=== PATIENT | female | born 2000 | race Caucasian/White ===

== ENCOUNTER → 2020-01-31 | Outpatient (REF) | payer BC ==
[2020-03-05 13:23] LABS: BASO % 0.3 % (0.0-1.0); EOS % 0.5 % (0.0-3.0); HEMOGLOBIN 12.6 g/dl (12.0-15.5); LYMPH # 1.3 10^3/uL (1.5-5.0); LYMPH % 15.8 % (24.0-44.0); MEAN CORPUSCULAR HEMOGLOBIN 27.6 pg (27.0-33.0); MEAN CORPUSCULAR HGB CONC 33.2 g/dl (32.0-36.5); MEAN CORPUSCULAR VOLUME 83.3 fl (80.0-96.0); MONO # 0.5 10^3/uL (0.0-0.8); MONO % 5.7 % (0.0-5.0); NEUTROPHILS # 6.1 10^3/uL (1.5-8.5); NEUTROPHILS % 77.3 % (36.0-66.0); PLATELET COUNT, AUTOMATED 217 10^3/uL (150-450); RED BLOOD COUNT 4.56 10^6/uL (4.00-5.40); WHITE BLOOD COUNT 7.9 10^3/uL (4.0-10.0)
[2020-03-09 10:50] LABS: CHLAMYDIA DNA AMPLIFICATION NEGATIVE (NEGATIVE); GC DNA AMPLIFICATION NEGATIVE (NEGATIVE)
[2020-03-19 09:17] LABS: HEPATITIS C VIRUS ABY INDEX 0.2 INDEX (<0.8); HIV 1&2 SCREEN CENTAUR NEGATIVE (NEGATIVE)
== END ==
LOC: M SFHCWAGY 12:15
PROVIDERS: ATTEND Advanced Practice Midwife
DX: Z34.02 Encounter for supervision of normal first pregnancy, second trimester (principal)

== ENCOUNTER → 2020-02-14 | Outpatient (CLI) | payer BC ==
--- NOTE | 2020-02-21 17:21 | REP ---
COMPLETE OBSTETRIC ULTRASOUND CLINICAL: Anatomical assessment. TECHNIQUE: Transabdominal obstetric ultrasound with color Doppler evaluation. FINDINGS: Ultrasound evaluation demonstrates a single live intrauterine in breech presentation. heart rate equals 142 beats per minute. Cervix measures 3.5 cm in length and appears closed. Amniotic fluid volume is normal. Placenta identified posteriorly, grade 1, and without placenta previa or abruption. Gestational age by current biometrical measurements 19 weeks 1 day with estimated date of delivery 07/09/2020. Estimated weight 272 grams. Anatomic assessment demonstrates normal cisterna magna, cavum, thalamus, spine, stomach, kidneys/bladder, heart/ventricular outflow tract, three-vessel cord/cord insertion, facial features, and extremities. IMPRESSION: Single live intrauterine in breech presentation demonstrating appropriate estimated weight and growth. Anatomic assessment is complete and normal. MTDD
== END ==
LOC: M WHC 08:05
PROVIDERS: ATTEND Advanced Practice Midwife
DX: Z34.02 Encounter for supervision of normal first pregnancy, second trimester (principal)

== ENCOUNTER → 2020-04-25 | Outpatient (REF) | payer BC | LOC: M PLALAB 15:24 | PROVIDERS: ATTEND Obstetrics & Gynecology | DX: Z3A.29 29 weeks gestation of pregnancy (principal) ==

== ENCOUNTER → 2020-05-13 | Outpatient (REF) | payer BC ==
[2020-05-13 16:59] LABS: HEMATOCRIT 34.1 % (36.0-47.0); HEMOGLOBIN 10.9 g/dl (12.0-15.5); MEAN CORPUSCULAR HEMOGLOBIN 26.4 pg (27.0-33.0); MEAN CORPUSCULAR VOLUME 82.6 fl (80.0-96.0); PLATELET COUNT, AUTOMATED 196 10^3/uL (150-450); RED BLOOD COUNT 4.13 10^6/uL (4.00-5.40); WHITE BLOOD COUNT 9.4 10^3/uL (4.0-10.0)
== END ==
LOC: M PLALAB 14:32
PROVIDERS: ATTEND Obstetrics & Gynecology
DX: Z3A.29 29 weeks gestation of pregnancy (principal); Z34.82 Encounter for supervision of other normal pregnancy, second trimester

== ENCOUNTER → 2020-06-10 | Outpatient (REF) | payer BC | LOC: M SFHCWAGY 16:57 | PROVIDERS: ATTEND Obstetrics & Gynecology | DX: Z34.03 Encounter for supervision of normal first pregnancy, third trimester (principal); Z3A.35 35 weeks gestation of pregnancy ==

== ENCOUNTER 2020-07-16 15:06 | Inpatient (IN) | payer BC, MEDICAID ==
[2020-07-16] VITALS (9 sets, daily range): BP systolic 108–127; BP diastolic 56–72
[~2020-07-16] VITALS: Ht 175.3 cm; Wt 99.1 kg
--- OUTSIDE RECORDS SUMMARY | 2020-07-16 15:18 | CCD ---
Author Author [facility] Organization [facility] Address Unknown Phone Unavailable Care Team Providers Care Continuity Tester Name Role Phone Alcides Lulu Unavailable PROBLEMS Type Condition ICD9-CM Code [id number] Code Onset Dates Condition S tatus SNOMED Code Notes Problem Supervision of other normal Z34.80 Ac tive [id number] ALLERGIES No Known Allergies ENCOUNTERS from 1999 to 2020-06-18 Encounter Location Date Provider Diagnosis [facility] [address] [place] [address] May, Lulu Mcgrath Encounter for superv ision of normal first in third trimester Z34.03 and 36 weeks gestation of Z3A.36 IMMUNIZATIONS No Information SOCIAL HISTORY Tobacco Use: Social History Observation Description Date Details (start date - stop date) Never Smoker Sex Assigned At : Social History Observation Description Sex Assigned At Unknown Domestic Violence: Question Answer Notes Status: No history of abuse Alcohol Screening: Question Answer Notes Did you have a drink containing alcohol in the past year? No Points 0 Interpretation Negative Tobacco Use: Question Answer Notes Are you a: never smoker REASON FOR REFERRAL No Information VITAL SIGNS Weight 210.6 lbs May, Weight-kg 95.53 kg May, Height 59 in May, BMI 42.536 kg/m2 May, Blood pressure systolic 112 mm Hg May, Blood pressure diastolic 70 mm Hg May, MEDICATIONS Medication SIG (Take, Route, Frequency, Duration) Notes Start Da te End Date Status 27-1 MG 1 tablet Orally Once a day Active PROCEDURES No Information RESULTS No Results REASON FOR VISIT 1WK PN Goals Section No Information Health Concerns No Information MEDICAL EQUIPMENT No Information MENTAL STATUS No Information FUNCTIONAL STATUS No Information ASSESSMENTS Encounter Date Diagnosis Assessment Notes Treatment Notes Treatm ent Clinical Notes May, Encounter for supervision of normal first in third trimester (ICD-10 - Z34.03) May, 36 weeks gestation of (ICD-10 - Z3A.36 ) PLAN OF TREATMENT Next Appt Details 1 Week Reason: Provider Name:Trace Mejia, 11:30:00 AM, [address] [place], [address], Insurance Providers Payer Name Payer Address Payer Phone Insured Name Patient Relati onship to Insured Coverage Start Date Coverage End Date BCBS OF [facility] [phone] [facility] [id number] [place]
--- OUTSIDE RECORDS SUMMARY | 2020-07-16 15:18 | CCD ---
Author Author [facility] Organization [facility] Address Unknown Phone Unavailable Care Team Providers Care Customer Operations Manager Name Role Phone Jackie Trace Unavailable PROBLEMS Type Condition ICD9-CM Code [id number] Code Onset Dates Condition S tatus SNOMED Code Notes Problem Supervision of other normal Z34.80 Ac tive [id number] ALLERGIES No Known Allergies ENCOUNTERS from 1999 to 2020-06-11 Encounter Location Date Provider Diagnosis [facility] [address] [place] [id number] May, Trace Mejia Encounter for superv ision of normal first , third trimester Z34.03 and 35 weeks gestation of Z3A.35 IMMUNIZATIONS No Information SOCIAL HISTORY Tobacco Use: [...] FOR REFERRAL No Information VITAL SIGNS Weight 205.8 lbs May, Height 59 in May, BMI 41.567 kg/m2 May, Blood pressure systolic 98 mm Hg May, Blood pressure diastolic 60 mm Hg May, MEDICATIONS Medication SIG (Take, Route, Frequency, Duration) Notes Start Da te End Date Status 27-1 MG 1 tablet Orally Once a day Active PROCEDURES No Information RESULTS No Results REASON FOR VISIT 4WK PN Goals Section No Information Health Concerns No Information MEDICAL EQUIPMENT No Information MENTAL STATUS No Information FUNCTIONAL STATUS No Information ASSESSMENTS Encounter Date Diagnosis Assessment Notes Treatment Notes Treatm ent Clinical Notes May, Encounter for supervision of normal first , third trimester (ICD-10 - Z34.03) May, 35 weeks gestation of (ICD-10 - Z3A.35 ) PLAN OF TREATMENT Treatment Notes Test Name Order Date GROUP B STREP CULTURE 2020-06-11 Next Appt Details 1 Week Reason:follow-up Provider Name:Lulu Mcgrath, 2020-06-17 0 1:40:00 PM, [address] [place], [address], Follow Up:1 Weekfollow-up Insurance Providers Payer Name Payer Address Payer Phone Insured Name Patient Relati onship to Insured Coverage Start Date Coverage End Date BCBS OF [facility] [phone] [facility] [id number] [place] self
--- OUTSIDE RECORDS SUMMARY | 2020-07-16 15:18 | CCD ---
Author Author [facility] Organization [facility] Address Unknown Phone Unavailable Care Team Providers Care Debt Counselor Name Role Phone Alcides Lulu Unavailable PROBLEMS Type Condition ICD9-CM Code AHC60-BD Code Onset Dates Condition S tatus SNOMED Code Notes Problem Supervision of other normal Z34.80 Ac tive [id number] ALLERGIES No Known Allergies ENCOUNTERS from 1999 to 2020-05-28 Encounter Location Date Provider Diagnosis [facility] [address] [place] [address] May, Lulu Mcgrath Encounter for superv ision of normal first , third trimester Z34.03 and 33 weeks gestation of Z3A.33 IMMUNIZATIONS No Information SOCIAL HISTORY Tobacco Use: Social History Observation Description Date Details (start date - stop date) Never Smoker Sex Assigned At : Social History Observation Description Sex Assigned At Unknown Domestic Violence: Question Answer Notes Status: No history of abuse Sexual Hx: Question Answer Notes Had sex in the last 12 months (vaginal, oral, or anal)? Yes with Men only Use protection? No Alcohol Screening: Question Answer Notes Did you have a drink containing alcohol in the past year? No Points 0 Interpretation Negative Tobacco Use: Question Answer Notes Are you a: never smoker REASON FOR REFERRAL No Information VITAL SIGNS Weight 202 lbs May, Height 59 in May, BMI 40.799 kg/m2 May, Blood pressure systolic 104 mm Hg May, Blood pressure diastolic 56 mm Hg May, MEDICATIONS Medication SIG (Take, Route, Frequency, Duration) Notes Start Da te End Date Status 27-1 MG 1 tablet Orally Once a day Active PROCEDURES from 1999 to 2020-05-28 Procedure Date Ordered Result Body Site Immunization: Boostrix 0.5mL IM (TDAP) 2020-05-23 N/A RESULTS No Results REASON FOR VISIT 4WK PN Goals Section No Information Health Concerns No Information MEDICAL EQUIPMENT No Information MENTAL STATUS No Information FUNCTIONAL STATUS No Information ASSESSMENTS Encounter Date Diagnosis Assessment Notes Treatment Notes Treatm ent Clinical Notes May, Encounter for supervision of normal first , third trimester (ICD-10 - Z34.03) May, 33 weeks gestation of (ICD-10 - Z3A.33 ) PLAN OF TREATMENT Next Appt Details 2 Weeks Reason: Provider Name:Trace Mejia, 02:00:00 PM, [address] [place], [address], Insurance Providers Payer Name Payer Address Payer Phone Insured Name Patient Relati onship to Insured Coverage Start Date Coverage End Date BCBS OF [facility] [phone] [facility] [id number] [address] self
--- OUTSIDE RECORDS SUMMARY | 2020-07-16 15:18 | CCD ---
Author Author [facility] Organization [facility] Address Unknown Phone Unavailable Care Team Providers Care Printed Circuit Boards Laminator Name Role Phone Bonnie Kumar MD Unavailable Unavailable Bonnie Kumar MD Unavailable Unavailable Bonnie Kumar MD Unavailable Unavailable Bonnie Kumar MD Unavailable Unavailable Bonnie Kumar MD Unavailable Unavailable Bonnie Kumar MD Unavailable Unavailable Bonnie Kumar MD Unavailable Unavailable Bonnie Kumar MD Unavailable Unavailable Bonnie Kumar MD Unavailable Unavailable Bonnie Kumar MD Unavailable Unavailable Bonnie Kumar MD Unavailable Unavailable Bonnie Kumar MD Unavailable Unavailable Bonnie Kumar MD Unavailable Unavailable Bonnie Kumar MD Unavailable Unavailable Bonnie Kumar MD Unavailable Unavailable Bonnie Kumar MD Unavailable Unavailable Bonnie Kumar MD Unavailable Unavailable Bonnie Kumar MD Unavailable Unavailable Bonnie Kumar MD Unavailable Unavailable Bonnie Kumar MD Unavailable Unavailable Bonnie Kumar MD Unavailable Unavailable Bonnie Kumar MD Unavailable Unavailable Bonnie Kumar MD Unavailable Unavailable Bonnie Kumar MD Unavailable Unavailable Bonnie Kumar MD Unavailable Unavailable Bonnie Kumar MD Unavailable Unavailable Bonnie Kumar MD Unavailable Unavailable Bonnie Kumar MD Unavailable Unavailable Bonnie Kumar MD Unavailable Unavailable Bonnie Kumar MD Unavailable Unavailable Bonnie Kumar MD Unavailable Unavailable Bonnie Kumar MD Unavailable Unavailable Bonnie Kumar MD Unavailable Unavailable Bonnie Kumar MD Unavailable Unavailable Bonnie Kumar MD Unavailable Unavailable Bonnie Kumar MD Unavailable Unavailable Bonnie Kumar MD Unavailable Unavailable Bonnie Kumar MD Unavailable Unavailable Bonnie Kumar MD Unavailable Unavailable Bonnie Kumar MD Unavailable Unavailable Bonnie Kumar MD Unavailable Unavailable Bonnie Kumar MD Unavailable Unavailable Bonnie Kumar MD Unavailable Unavailable Bonnie Kumar MD Unavailable Unavailable Bonnie Kumar MD Unavailable Unavailable Bonnie Kumar MD Unavailable Unavailable Bonnie Kumar MD Unavailable Unavailable Bonnie Kumar MD Unavailable Unavailable Bonnie Kumar MD Unavailable Unavailable Bonnie Kumar MD Unavailable Unavailable Bonnie Kumar MD Unavailable Unavailable Bonnie Kumar MD Unavailable Unavailable Bonnie Kumar MD Unavailable Unavailable Bonnie Kumar MD Unavailable Unavailable Bonnie Kumar MD Unavailable Unavailable Bonnie Kumar MD Unavailable Unavailable Bonnie Kumar MD Unavailable Unavailable Bonnie Kumar MD Unavailable Unavailable Bonnie Kumar MD Unavailable Unavailable Bonnie Kumar MD Unavailable Unavailable Bonnie Kumar MD Unavailable Unavailable Kwicklis, J Toña MD Unavailable Unavailable Kwicklis, J Toña MD Unavailable Unavailable Kwicklis, J Toña MD Unavailable Unavailable Kwicklis, J Toña MD Unavailable Unavailable Kwicklis, J Toña MD Unavailable Unavailable Kwicklis, J Toña MD Unavailable Unavailable Kwicklis, J Toña MD Unavailable Unavailable Kwicklis, J Toña MD Unavailable Unavailable Kwicklis, J Toña MD Unavailable Unavailable Kwicklis, J Toña MD Unavailable Unavailable Kwicklis, J Toña MD Unavailable Unavailable Kwicklis, J Toña MD Unavailable Unavailable Kwicklis, J Toña MD Unavailable Unavailable Kwicklis, J Toña MD Unavailable Unavailable Kwicklis, J Toña MD Unavailable Unavailable Kwicklis, J Toña MD Unavailable Unavailable Kwicklis, J Toña MD Unavailable Unavailable Kwicklis, J Toña MD Unavailable Unavailable Kwicklis, J Toña MD Unavailable Unavailable Kwicklis, J Toña MD Unavailable Unavailable Kwicklis, J Toña MD Unavailable Unavailable Kwicklis, J Toña MD Unavailable Unavailable Re-disclosure Warning The records that you are about to access may contain information from federally-assisted alcohol or drug abuse programs. If such information is present, then the following federally mandated warning applies: This information has been disclosed to you from records protected by federal confidentiality rules (42 CFR part 2). The federal rules prohibit you from making any further disclosure of this information unless further disclosure is expressly permitted by the written consent of the person to whom it pertains or as otherwise permitted by 42 CFR part 2. A general authorization for the release of medical or other information is NOT sufficient for this purpose. The Federal rules restrict any use of the information to criminally investigate or prosecute any alcohol or drug abuse patient.The records that you are about to access may contain highly sensitive health information, the redisclosure of which is protected by Article 27-F of the [place] Public Health law. If you continue you may have access to information: Regarding HIV / AIDS; Provided by facilities licensed or operated by the [facility] Office of Mental Health; or Provided by the [facility] Office for People With Developmental Disabilities. If such information is present, then the following [facility] mandated warning applies: This information has been disclosed to you from confidential records which are protected by state law. State law prohibits you from making any further disclosure of this information without the specific written consent of the person to whom it pertains, or as otherwise permitted by law. Any unauthorized further disclosure in violation of state law may result in a fine or care home sentence or both. A general authorization for the release of medical or other information is NOT sufficient authorization for further disc losure. Family History Family Member Name Family Member Gender Family Member Status Date o f Status Description Data Source(s) Unknown Unknown Problem MEDENT ([facility]) Encounters Encounter Providers Location Date Indications Data Source(s ) ( ESTOB) [facility] [place] [address] [place] [phone] 07/04/2020 12:00:00 AM EST eCW1 ([facility]) ( ESTOB) [facility] [place] [address] [place] [phone] 06/26/2020 12:00:00 AM EST eCW1 ([facility]) ( ESTOB) [facility] [place] [address] [place], [place] [phone] 06/17/2020 12:00:00 AM EST eCW1 ([facility]) ( ESTOB) [facility] [place] [address] [place] [address] 06/09/2020 12:00:00 AM EST eCW1 ([facility]) ( ESTOB) [facility] [place] [address] [place] [phone] 05/23/2020 12:00:00 AM EST eCW1 ([facility]) ( ESTOB) [facility] [place] [address] [place] [phone] 04/25/2020 12:00:00 AM EST eCW1 ([facility]) ( ESTOB) [facility] [place] [address] [place] [phone] 03/26/2020 12:00:00 AM EDT eCW1 ([facility]) Outpatient Attender: Toña Kumar MDReferrer: Toña turcios MD 12/12/2019 01:47:00 PM EDT - 12/12/2019 02:20:00 PM EDT [facility] Insurance Providers Payer name Policy type / Coverage type Policy ID Covered democrat ID Covered democrat's relationship to vázquez Policy Vázquez Plan Information [employer] [place] 306/806 [id number] SP [id number] [place] P[place] 302/[id number] [place]LL[place] BCBS B [id number] S [id number] [place] PPO 302/307 [id number] BCBS/[place] Commercial [id number] Family Dependent [id number] BCBS of [facility] Other [id number] F amily Dependent Rogelio Babbpert [id number] BCBS of [facility] Other [id number] F amily Dependent Rogelio Babbpert [id number] BCBS of [facility] Other [id number] F amily Dependent Rogelio Tinajerouppert [id number] BCBS of [facility] Other [id number] F amily Dependent Rogelio Tinajerouppert [id number] [employer] BL[employer] BS [id number] BLUE CROSS BLUE SHIELD -CLINIC [id number] Problems, Conditions, and Diagnoses Code Display Name Description Problem Type Effective Dates Data Source(s) Z34.80 care Supervision of other normal Armaan bradford 03/25/2020 12:00:00 AM EDT eCW1 ([facility]) Surgeries/Procedures Procedure Description Date Indications Data Source(s) Immunization: Boostrix 0.5mL IM (TDAP) 05/23/2020 12:0 0:00 AM EST eCW1 ([facility]) Results ID Date Data Source [id number] 12/12/2019 01:49:00 PM EDT [facility] Patient Name: VITO SAUER : 2000 Sex: F Pt Unit #: [id number] Location:[facility] Provider: Visit Date/Time: 12/12/19 Primary Insurance: BC/BS OF [facility] Secondary Insurance: Self Pay ADDENDUM Office Procedure Documentation entered by Carolynn Richards 12/12/19 15:19: Results test test POSITIVE Last Edit by Carolynn Richards on 12/12/19 15:19 <Electronically signed by Carolynn Richards > Addendum Signed By: Date/Time: 12/12/19 1519 Intake Vital Signs 12/12/19 13:54 Current Height 5 ft 9 in Current Weight 140 lb Weight Measurement Method Standing Scale BMI 20.7 BP 130/70 Blood Pressure Location Rt brachial Position Sitting Respiration 12 Pulse 113 H Pulse Strength Normal Pulse Source Pulse Oximeter Pulse Oximetry (%) 99 Oxygen Delivery Method room air Intake Visit Reasons: Annual Physical Nurse Note: Annual Physical - Not currently taking any prescribed medications, only pre-lisa Vit, also missed her menstrual Cycle last month, Has never had a Pap, no additional concerns today Insurance Rater Required: No Accompanied by: Self / Same as Patient Is patient in pain?: No Allergies No Known Drug Allergies Allergy (Verified 12/12/19 14:18) Medications No Known Home Medications Is last menstrual period known: Yes Last menstrual period: 08/31/19 Post menopausal: No Fall Risk History of falls: No Ambulatory Aid:: None Gait/Transferring:: Normal Medications:: No High Risk Medications PHQ-2/9 Over the last 2 weeks, how often have you been bothered by any of the following problems? 1. Little interest or pleasure in doing things: not at all 2. Feeling down, depressed, or hopeless: not at all Total score: 0 HIV Testing Offer - ages 13-64 HIV testing Offer: Yes SBIRT Annual Questionnaire Are you currently in recovery for alcohol or substance use?: No How many times in the past year have you had 4 or more drinks in a day ?: None How many times in the past year have you used a recreational drug or used a prescription medication for nonmedical reasons?: None Do you need a note to return Do you need a note to return to daycare/school/sports/work: No Coronavirus Screening Screening Have you traveled outside of [facility] or [facility] in the last 14 days.: No Has patient experienced coronavirus symptoms: No [facility] Social History Does the Patient have a Healthcare Proxy: No Does Patient have a DNR?: No Does Patient have a Living Will?: No Female Reproductive History Menstrual Date of last menstrual period: 08/31/19 Review of Systems Const Denies chills, Denies fatigue, Denies fever(s), Denies malaise, Reports poor appetite, Denies weightgain and Denies weight loss Eyes Denies blurry vision, Denies diplopia and Denies eye discharge ENT Denies otalgia, Denies nasal congestion, Denies neck pain and Denies sore throat Card Denies chest pain, Denies leg edema and Denies dyspnea Resp Denies cough, Denies dyspnea and Denies wheezing GI Denies constipation, Denies diarrhea and Reports nausea Genitourinary: Reports amenorrhea; Denies abnormal vaginal bleeding, dysuria or pelvic pain Musc Denies back pain, Denies arthralgias, Denies limited range of motion and Denies neck pain Skin/Breast Denies breast pain, Denies breast mass, Denies lesions and Denies rash Psych Denies abnormal sleep pattern, Denies anxiety, Denies depression and Denies irritability Endo Denies fatigue, Denies polydipsia and Denies polyuria William/Lymph Denies easy bleeding, Denies easy bruising and Denies lymphadenopathy Aller/Immun Denies wheezing Exam Const General: cooperative, healthy appearing and no acute distress Nutritional Appearance: average body habitus and well nourished [facility] Head: normal to inspection, normocephalic and atraumatic Ears: TM's normal bilaterally and EAC's normal General nose exam: external nose normal; no nasal discharge noted Mouth: oral mucosae normal Throat: posterior oropharynx normal and no postnasal drainage Eyes General: appearance normal, both eyes and all related structures Conjunctivae: conjunctivae normal Sclera: sclerae normal Pupils: PERRL Neck Neck: normal visual inspection and full ROM Neck mass: No Thyroid: thyroid normal Lymphatic: no lymphadenopathy noted Chest Chest: normal inspection of the chest Resp Effort Inspection: normal respiratory effort Auscultation: no rales, no rhonchi and no wheezes Cardio Rate: regular rate Rhythm: regular rhythm Heart Sounds: no murmurs GI Inspection: Yes normal to inspection Palpation: soft, no masses and nontender Auscultation: normal bowel sounds Musc Cervical Spine: cervical ROM normal Thoracic/Lumbar Spine: thoracic and lumbar spine normal to inspection Neuro General: patient alert and patient awake Cranial Nerves: hearing normal Cognition: normal cognition Motor: muscle tone normal throughout Sensory Exam: no sensory deficits noted Extrem General: no clubbing, cyanosis or edema Psych Appearance: grossly normal Mental Status: mental status grossly normal Assessment Plan Assessment Plan (1) Encounter for routine adult medical exam with abnormal findings: Code(s): Z00.01 - Encounter for general adult medical examination with a bnormal findings (2) : Code(s): Z34.90 - Encounter for supervision of normal , unspecified, unspecified trimester Qualifiers: Weeks of gestation: 12 weeks Qualified Code(s): Z3A.12 - 12 weeks gestation of Plan - Toña Kumar M.D.: doing well, some nausea, but normal exam, referral done for Electronically Signed By: <Electronically signed by Toña Kumar MD> Date/Time Signed: 12/12/19 1423 Name Value Range Interpretation Code Description Data Haily rce(s) Supporting Document(s) Procedure Social History Code Duration Value Status Description Data Source(s ) Smoking 07/03/2020 12:00:00 AM EST Never Smoker completed Never S moker eCW1 ([facility]) Smoking 06/26/2020 12:00:00 AM EST Never Smoker completed Never S moker eCW1 ([facility]) Smoking 06/16/2020 12:00:00 AM EST Never Smoker completed Never S moker eCW1 ([facility]) Smoking 06/06/2020 12:00:00 AM EST Never Smoker completed Never S moker eCW1 ([facility]) Smoking 05/21/2020 12:00:00 AM EST Never Smoker completed Never S moker eCW1 ([facility]) Smoking 04/22/2020 12:00:00 AM EST Never Smoker completed Never S moker eCW1 ([facility]) Smoking 04/22/2020 12:00:00 AM EST Never Smoker completed Never S moker eCW1 ([facility]) Vital Signs ID Date Data Source UNK Name Value Range Interpretation Code Description Data Source(s) Diastolic blood pressure 68 mm[Hg] 68 mm[Hg] eCW1 ([facility]) Systolic blood pressure 116 mm[Hg] 116 mm[Hg] e CW1 ([facility]) Body mass index (BMI) [Ratio] 42.698 kg/m2 42.6 98 kg/m2 eCW1 ([facility]) Body height 59 [in_i] 59 [in_i] eCW1 ([facility]) Body weight 95.89 kg 95.89 kg eCW1 ([facility]) Body weight 211.4 [lb_av] 211.4 [lb_av] eCW1 ([facility]) Diastolic blood pressure 64 mm[Hg] 64 mm[Hg] eCW1 ([facility]) Systolic blood pressure 118 mm[Hg] 118 mm[Hg] e CW1 ([facility]) Body mass index (BMI) [Ratio] 42.213 kg/m2 42.2 13 kg/m2 eCW1 ([facility]) Body height 59 [in_i] 59 [in_i] eCW1 ([facility]) Body weight 209 [lb_av] 209 [lb_av] eCW1 ([facility]) Diastolic blood pressure 70 mm[Hg] 70 mm[Hg] eCW1 ([facility]) Systolic blood pressure 112 mm[Hg] 112 mm[Hg] e CW1 ([facility]) Body mass index (BMI) [Ratio] 42.536 kg/m2 42.5 36 kg/m2 eCW1 ([facility]) Body height 59 [in_i] 59 [in_i] eCW1 ([facility]) Body weight 95.53 kg 95.53 kg eCW1 ([facility]) Body weight 210.6 [lb_av] 210.6 [lb_av] eCW1 ([facility]) Diastolic blood pressure 60 mm[Hg] 60 mm[Hg] eCW1 ([facility]) Systolic blood pressure 98 mm[Hg] 98 mm[Hg] e CW1 ([facility]) Body mass index (BMI) [Ratio] 41.567 kg/m2 41.5 67 kg/m2 eCW1 ([facility]) Body height 59 [in_i] 59 [in_i] eCW1 ([facility]) Body weight 205.8 [lb_av] 205.8 [lb_av] eCW1 ([facility]) Diastolic blood pressure 56 mm[Hg] 56 mm[Hg] eCW1 ([facility]) Systolic blood pressure 104 mm[Hg] 104 mm[Hg] e CW1 ([facility]) Body mass index (BMI) [Ratio] 40.799 kg/m2 40.7 99 kg/m2 eCW1 ([facility]) Body height 59 [in_i] 59 [in_i] eCW1 ([facility]) Body weight 202 [lb_av] 202 [lb_av] eCW1 ([facility]) Diastolic blood pressure 60 mm[Hg] 60 mm[Hg] eCW1 ([facility]) Systolic blood pressure 100 mm[Hg] 100 mm[Hg] e CW1 ([facility]) Body mass index (BMI) [Ratio] 38.739 kg/m2 38.7 39 kg/m2 eCW1 ([facility]) Body height 59 [in_i] 59 [in_i] eCW1 ([facility]) Body weight 87 kg 87 kg eCW1 ([facility]) Body weight 191.8 [lb_av] 191.8 [lb_av] eCW1 ([facility]) Diastolic blood pressure 68 mm[Hg] 68 mm[Hg] eCW1 ([facility]) Systolic blood pressure 120 mm[Hg] 120 mm[Hg] e CW1 ([facility]) Body mass index (BMI) [Ratio] 37.891 kg/m2 37.8 91 kg/m2 eCW1 ([facility]) Body height 59 [in_i] 59 [in_i] eCW1 ([facility]) Body weight 187.6 [lb_av] 187.6 [lb_av] eCW1 ([facility])
--- OUTSIDE RECORDS SUMMARY | 2020-07-16 15:18 | CCD ---
Author Author [facility] Organization [facility] Address Unknown Phone Unavailable Care Team Providers Care Customer Field Representative Name Role Phone AlcidesLulu Unavailable PROBLEMS Type Condition ICD9-CM Code [id number] Code Onset Dates Condition S tatus SNOMED Code Notes Problem Supervision of other normal Z34.80 Ac tive [id number] ALLERGIES No Known Allergies ENCOUNTERS from 2000 to 2020-07-07 Encounter Location Date Provider Diagnosis [facility] [address] [place] [address] Jun, Lulu Mcgrath Encounter for prenat al care in third trimester of first Z34.03 and 39 weeks gestation of Z3A.39 IMMUNIZATIONS No Information SOCIAL HISTORY Tobacco Use: [...] FOR REFERRAL No Information VITAL SIGNS Weight 211.4 lbs Jun, Weight-kg 95.89 kg Jun, Height 59 in Jun, BMI 42.698 kg/m2 Jun, Blood pressure systolic 116 mm Hg Jun, Blood pressure diastolic 68 mm Hg Jun, MEDICATIONS Medication SIG (Take, Route, Frequency, Duration) Notes Start Da te End Date Status 27-1 MG 1 tablet Orally Once a day Active PROCEDURES No Information RESULTS No Results REASON FOR VISIT 1 WK PN Goals Section No Information Health Concerns No Information MEDICAL EQUIPMENT No Information MENTAL STATUS No Information FUNCTIONAL STATUS No Information ASSESSMENTS Encounter Date Diagnosis Assessment Notes Treatment Notes Treatm ent Clinical Notes Jun, Encounter for care in third trimester of first (ICD-10 - Z34.03) Jun, 39 weeks gestation of (ICD-10 - Z3A.39 ) PLAN OF TREATMENT Next Appt Details 1 Week Reason: Provider Name:Alexandrea Montgomery, 2020-06 11:00:00 AM, [address] [place], [address], Insurance Providers Payer Name Payer Address Payer Phone Insured Name Patient Relati onship to Insured Coverage Start Date Coverage End Date BCBS AMAN AJ PPO [id number] [facility] [id number] [address]
--- OUTSIDE RECORDS SUMMARY | 2020-07-16 15:18 | CCD ---
Author Author [facility] Organization [facility] Address Unknown Phone Unavailable Care Team Providers Care Trim And Burr Operator Name Role Phone Jackie Trace Unavailable PROBLEMS Type Condition ICD9-CM Code [id number] Code Onset Dates Condition S tatus SNOMED Code Notes Problem Supervision of other normal Z34.80 Ac tive [id number] ALLERGIES No Known Allergies ENCOUNTERS from 2000 to 2020-06-28 Encounter Location Date Provider Diagnosis [facility] [address] [place] [phone] Jun, Trace Mejia Encounter for superv ision of normal first , third trimester Z34.03 and 38 weeks gestation of Z3A.38 IMMUNIZATIONS No Information SOCIAL HISTORY Tobacco Use: [...] FOR REFERRAL No Information VITAL SIGNS Weight 209 lbs Jun, Height 59 in Jun, BMI 42.213 kg/m2 Jun, Blood pressure systolic 118 mm Hg Jun, Blood pressure diastolic 64 mm Hg Jun, MEDICATIONS Medication SIG (Take, Route, Frequency, Duration) Notes Start Da te End Date Status 27-1 MG 1 tablet Orally Once a day Active PROCEDURES No Information RESULTS No Results REASON FOR VISIT 1 wk pn Goals Section No Information Health Concerns No Information MEDICAL EQUIPMENT No Information MENTAL STATUS No Information FUNCTIONAL STATUS No Information ASSESSMENTS Encounter Date Diagnosis Assessment Notes Treatment Notes Treatm ent Clinical Notes Jun, Encounter for supervision of normal first , third trimester (ICD-10 - Z34.03) Jun, 38 weeks gestation of (ICD-10 - Z3A.38 ) PLAN OF TREATMENT Next Appt Details 1 Week Reason: Provider Name:Lulu Mcgrath, 2020-07-04 1 0:40:00 AM, [address] [place], [address], Insurance Providers Payer Name Payer Address Payer Phone Insured Name Patient Relati onship to Insured Coverage Start Date Coverage End Date BCBS OF [facility] [id number] [facility] [id number] VITO PRASAD self
--- OUTSIDE RECORDS SUMMARY | 2020-07-16 15:18 | CCD ---
Author Author [facility] Organization [facility] Address Unknown Phone Unavailable Care Team Providers Care Power Plant Supervisor Name Role Phone Ronak Maribell Unavailable PROBLEMS Type Condition ICD9-CM Code [id number] Code Onset Dates Condition S tatus SNOMED Code Notes Problem Supervision of other normal Z34.80 Ac tive [id number] ALLERGIES No Known Allergies ENCOUNTERS from 2000 to 2020-04-23 Encounter Location Date Provider Diagnosis [facility] [address] [place] [address] Mar, Maribell Simons Encounter for superv ision of normal first in second trimester Z34.02 and 25 weeks gestation of Z3A.25 IMMUNIZATIONS No Information SOCIAL HISTORY Tobacco Use: [...] FOR REFERRAL No Information VITAL SIGNS Weight 187.6 lbs Mar, Height 59 in Mar, BMI 37.891 kg/m2 Mar, Blood pressure systolic 120 mm Hg Mar, Blood pressure diastolic 68 mm Hg Mar, MEDICATIONS Medication SIG (Take, Route, Frequency, Duration) Start Date En d Date Status 27-1 MG 1 tablet Orally Once a day Active PROCEDURES No Information RESULTS No Results REASON FOR VISIT 4 WK PN Goals Section No Information Health Concerns No Information MEDICAL EQUIPMENT No Information MENTAL STATUS No Information FUNCTIONAL STATUS No Information ASSESSMENTS Encounter Date Diagnosis Notes Mar, 25 weeks gestation of (ICD-10 - Z3A.25) Mar, Encounter for supervision of normal first in second trimester (ICD-10 - Z34.02) PLAN OF TREATMENT Treatment Notes Test Name Order Date CBC - Complete Blood Count 2020-04-23 Type and Screen (D Rh Antibody Screen) 2020-04-23 Glucose Challenge Test 1 Hour 2020-04-23 Next Appt Details 4 Weeks Reason: Provider Name:Alexandrea Nisa Montgomery, 2020-04 02:40:00 PM, [address] [place], [address], Follow Up:4 WeeksPrenatal Insurance Providers Payer Name Payer Address Payer Phone Insured Name Patient Relati onship to Insured Coverage Start Date Coverage End Date BCBS OF [facility] [id number] [facility] [id number] VITO PRASAD
--- OUTSIDE RECORDS SUMMARY | 2020-07-16 15:18 | CCD ---
Author Author [facility] Organization [facility] Address Unknown Phone Unavailable Care Team Providers Care Security Control Assessor Name Role Phone Alexandrea Montgomery Unavailable PROBLEMS Type Condition ICD9-CM Code PNY90-YS Code Onset Dates Condition S tatus SNOMED Code Notes Problem Supervision of other normal Z34.80 Ac tive [id number] ALLERGIES No Known Allergies ENCOUNTERS from 1999 to 2020-05-20 Encounter Location Date Provider Diagnosis [facility] [address] [place] [address] Apr, Alexandrea Montgomery Supervision of jose holloway first in third trimester Z34.03 and 29 weeks gestation of Z3A.29 IMMUNIZATIONS No Information SOCIAL HISTORY Tobacco Use: [...] FOR REFERRAL No Information VITAL SIGNS Weight 191.8 lbs Apr, Weight-kg 87 kg Apr, Height 59 in Apr, BMI 38.739 kg/m2 Apr, Blood pressure systolic 100 mm Hg Apr, Blood pressure diastolic 60 mm Hg Apr, MEDICATIONS Medication SIG (Take, Route, Frequency, Duration) [...] Notes Treatment Notes Treatm ent Clinical Notes Apr, Supervision of normal first in third trimester (ICD-10 - Z34.03) Apr, 29 weeks gestation of (ICD-10 - Z3A.29 ) PLAN OF TREATMENT Next Appt Details 4 Weeks Reason:PN Provider Name:Lulu Mcgrath, 2020-05-23 1 0:40:00 AM, [address] [place], [address], Follow Up:4 WeeksPN Insurance Providers Payer Name Payer Address Payer Phone Insured Name Patient Relati onship to Insured Coverage Start Date Coverage End Date [employer] [id number] [facility] [id number] [address]ASAD self
[2020-07-16] MEDS ORDERED: PRENTAB9 PO (15:51)
[2020-07-16] MEDS ORDERED: miSOPROStol 50MCG 1/2 TABLET PO ONE (16:30)
[2020-07-16] MEDS ORDERED: LACTATED RINGER'S 1000 ML IV ONE (16:30)
--- NOTE | 2020-07-16 17:32 | HPE ---
HISTORY AND PHYSICAL DATE OF ADMISSION: 07/16/2020 HISTORY OF PRESENT ILLNESS: Tonio Florentino is a 1, para 0 at 41 weeks' gestation by first trimester ultrasound. She presents to labor and delivery today for induction of labor due to postterm . She does deny regular painful contractions, vaginal bleeding and leakage of fluids. The fetus has been active. Her care was initiated at [facility] in the first trimester and her course has been uncomplicated. OBSTETRIC HISTORY: [facility] . OBSTETRIC LABORATORIES: O positive, antibody screen negative. Syphilis negative. Gonorrhea and chlamydia negative. Hepatitis B surface antigen negative. Hepatitis C antibody negative. HIV negative. Rubella immune. Urine culture no growth. Gestational diabetic screening normal at 109. Group B Streptococcus (GBS) is negative. PAST MEDICAL HISTORY: Noncontributory. SURGERIES: None. FAMILY HISTORY: Skin cancer, breast cancer. SOCIAL HISTORY: The patient is . Her is at bedside and supportive. She is a nonsmoker. Denies alcohol use and drug use. No history of any sexually transmitted infections and denies history of abuse. CURRENT MEDICATIONS: - vitamins. ALLERGIES: No known drug allergies. OBJECTIVE: Temperature 98.8, pulse 105, respirations 18, blood pressure 127/72. HEART RATE: 140 with moderate variability, positive accelerations, no decelerations. Contractions are occasional. ABDOMEN: Gravid. Cephalic presentation by Pavel's maneuver. ESTIMATED WEIGHT: 8 pounds. STERILE VAGINAL EXAM: 2-3 cm dilated, 80% effaced, -3 station. ASSESSMENT: Intrauterine at 41 weeks, heart rate category one, postterm . PLAN: Admit patient to labor and delivery, 500 mL bolus of lactated Ringer's, then saline lock. Out of bed ad arnulfo. Regular diet at this time. I will administer one dose of misoprostol 50 mcg orally for cervical ripening and then start intravenous (IV) Pitocin. Consider assisted rupture of membranes once patient is in active labor. She is considering IV pain medications and/or epidural as her labor progresses. Risks, benefits and alternatives to induction have been reviewed. Her and her 's questions have been answered. She has been verbally consented for emergency surgery and blood products if they are necessary. I do anticipate labor and a spontaneous vaginal delivery.
[2020-07-16 18:01] LABS: HEMATOCRIT 34.4 % (36.0-47.0); HEMOGLOBIN 10.3 g/dl (12.0-15.5); MEAN CORPUSCULAR HEMOGLOBIN 22.7 pg (27.0-33.0); MEAN CORPUSCULAR HGB CONC 29.9 g/dl (32.0-36.5); MEAN CORPUSCULAR VOLUME 75.8 fl (80.0-96.0); PLATELET COUNT, AUTOMATED 212 10^3/uL (150-450); RED BLOOD COUNT 4.54 10^6/uL (4.00-5.40); WHITE BLOOD COUNT 8.2 10^3/uL (4.0-10.0)
[2020-07-16] MEDS ORDERED: LR 1,000 ML IV SCH (18:51)
[2020-07-16] MEDS ORDERED: OXYTOCIN DRIP 30 UNITS in IV 1 EA IV SCH (19:00)
[2020-07-16] MEDS ORDERED: OXYTOCIN 30 UNITS IN 0.9% NaCl 500ML IV BAG (J2590) As Ordered ONE (21:24)
[2020-07-17] VITALS (53 sets, daily range): BP systolic 76–145; BP diastolic 40–94
[2020-07-17] MEDS ORDERED: FENTANYL 2MCG/ML ROPIVACAINE 0.2% IN 0.9% NACL 100ML IVBAG As Ordered ONE (00:45)
[2020-07-17] MEDS ORDERED: NALOXONE INJ 0.4MG/1ML VIAL (J2310 PER 1MG) IV PRN (05:00)
[2020-07-17] MEDS ORDERED: EPIDURAL COMMENT XX SCH (05:00)
[2020-07-17] MEDS ORDERED: REFRIGERATOR IV KEYS XX PRN (05:00)
[2020-07-17] MEDS ORDERED: ONDANSETRON 4MG/2ML VIAL IV PRN (05:00)
[2020-07-17] MEDS ORDERED: EPIDURAL/PCA KEYS XX PRN (05:00)
[2020-07-17] MEDS ORDERED: ePHEDrine SULFATE 25 MG/5 ML(5MG/ML) SYRINGE IV PRN (05:00)
[2020-07-17] MEDS ORDERED: FENTANYL/ROPIVACAINE/NACL BAG 100 ML EPIDURAL SCH (05:00)
[2020-07-17] MEDS ORDERED: LACTATED RINGER'S 1000 ML IV PRN (05:00)
[2020-07-17] MEDS ORDERED: diphenhydrAMINE 50MG/ML VIAL (J1200) IV PRN (05:00)
[2020-07-17] MEDS ORDERED: OXYTOCIN DRIP 30 UNITS in IV 1 EA IV SCH (07:51)
[2020-07-17] MEDS ORDERED: MEASLES,MUMPS,RUBELLA VACCINE INJ (MMR-II) (90707) SC SCH (08:00)
[2020-07-17] MEDS ORDERED: METHYLERGONOVINE MALEATE 0.2 MG TAB PO PRN (08:00)
[2020-07-17] MEDS ORDERED: BENZOCAINE 20% HEMORRHOIDAL OINTMENT 28GM TUBE TOP PRN (08:00)
[2020-07-17] MEDS ORDERED: RHOGAM 300 MCG (1500 IU) INJ (J2790) IM SCH (08:00)
[2020-07-17] MEDS ORDERED: ACETAMINOPHEN TAB 650MG DOSE (2X325MG) PO PRN (08:00)
[2020-07-17] MEDS ORDERED: LIDOCAINE 1% MDV 20ML VIAL INFIL ONE (08:00)
[2020-07-17] MEDS ORDERED: ACETAMINOPHEN 500 MG TAB PO PRN (08:00)
[2020-07-17] MEDS ORDERED: IBUPROFEN 600MG TAB PO PRN (08:00)
[2020-07-17] MEDS ORDERED: DOCUSATE SODIUM 100MG CAPSULE PO PRN (08:00)
--- NOTE | 2020-07-17 08:18 | DN ---
DELIVERY NOTE DATE OF DELIVERY: 07/17/2020 TIME OF : 0715 GENDER: Male APGARS: 8 and 9 LACERATIONS: Right sulcus extending into the right labia. ANESTHESIA: ESTIMATED BLOOD LOSS: 400 mL. COUNTS: Correct and verified. DESCRIPTION OF DELIVERY: Shabnam is a 20-year-old 1, para 1-0-0-1 now who was admitted to labor and delivery at 41 weeks gestation for induction of labor. One dose of misoprostol and IV Pitocin was used and labor did ensue. She utilized and epidural for her labor coping. She reached full dilation at 0605. She pushed to a normal spontaneous vaginal delivery of a live male infant in occiput anterior (OA) position with restitution to left occiput transverse (LOT) position at 0715. There was no nuchal cord. The shoulders delivered with gentle downward traction and the corpus immediately followed. The male was placed on the maternal abdomen crying and active. Both and nares were bulb suctioned. Cord was clamped x2 once pulsations ceased and cut by the father of the baby under my direction. Spontaneous expulsion of an intact placenta with three-vessel cord by Mckay mechanism was at 0721. Uterine hemostasis achieved with IV Pitocin and uterine fundal massage. Estimated blood loss 400 mL. Perineum and vagina inspected noted to have a right sulcus laceration that extended into the right labia infiltrated with 1% Lidocaine and repaired with 3-0 Vicryl Rapide in the usual fashion. Hiltons male weight is pending. Apgars are 8 and 9. Family have named their son Carlin and the mom is going to breastfeed. At the close of delivery lap counts, needle counts, and instrument counts were correct and verified.
[2020-07-17] MEDS: IBUPROFEN 800 MG TAB PO PRN ×2 (09:02→17:43)
[2020-07-17] MEDS: PRENATAL VITAMINS CHEWABLE TABLET PO SCH (09:02)
[2020-07-18 06:08] VITALS: BP 116/69
[2020-07-18] MEDS: PRENATAL VITAMINS CHEWABLE TABLET PO SCH (07:29)
[2020-07-18] MEDS: IBUPROFEN 800 MG TAB PO PRN (07:30)
--- NOTE | 2020-07-18 07:36 | IPNPDOC ---
Progress Note Date of Service: Jul 18, 2020 Day#: 1 Progress Note SUBJECT: Shabnam is a 20-year-old 1 now Para 1-0-0-1 status post un complicated spontaneous vaginal delivery with post vaginal laceration with repair, doing well day # 1. She has been ambulating, voiding spontaneously without issue and tolerating regular diet. Breast feeding without issue. Reports lochia is like a normal period. Patient is ambulating well. Pain controlled well with Tylenol and Motrin. OBJECTIVE: VITAL SIGNS: Within normal limits, afebrile. Alert and oriented times three. Respirations regular, no accessory muscle use. Abdomen: Fundus firm at U-1. Soft, NTTP. Extremities: No edema, negative calf tenderness. Minimal lochia. ASSESSMENT: Day #1 PLAN: 1. May shower today 2. Tylenol and Motrin for pain. 3. Encourage breast feeding and ambulation. 4. Normal nursing care. VS, I&O, 24H, Fishbone Vital Signs/I&O Vital Signs Date Time Temp Pulse Resp B/P (MAP) Pulse Ox O2 Delivery O2 Flow Rate FiO2 07/18/20 06:08 98.8 88 16 116/69 (85) 07/16/20 15:30 98 Room Air I&O- Last 24 Hours up to 6 AM 07/18/20 06:00 Intake Total 3557.0 ml Output Total 3700 ml Balance -143.0 ml TIM MONTANEZ CNM Jul 18, 2020 07:36
[2020-07-18 18:00] VITALS: BP 128/65
[2020-07-19 06:06] VITALS: BP 121/74
[2020-07-19] MEDS: PRENATAL VITAMINS CHEWABLE TABLET PO SCH (09:06)
== END 2020-07-19 12:35 | disposition home or self-care (01) | DRG 560 ==
LOC: M LDI 15:06 → M OBS 07-17 09:45
PROVIDERS: ADMIT Advanced Practice Midwife; ATTEND Advanced Practice Midwife
PROC: 3E0P7GC Introduction of Other Therapeutic Substance into Female Reproductive, Via Natural or Artificial Opening (ICD-10-PCS; 2020-07-16)
PROC: 10E0XZZ Delivery of Products of Conception, External Approach (ICD-10-PCS; principal; 2020-07-17)
PROC: 0KQM0ZZ Repair Perineum Muscle, Open Approach (ICD-10-PCS; 2020-07-17)
PROC: 0HQ9XZZ Repair Perineum Skin, External Approach (ICD-10-PCS; 2020-07-17)
PROC: 10907ZC Drainage of Amniotic Fluid, Therapeutic from Products of Conception, Via Natural or Artificial Opening (ICD-10-PCS; 2020-07-17)
DX: O48.0 Post-term pregnancy (principal); Z3A.41 41 weeks gestation of pregnancy; Z37.0 Single live birth; O70.1 Second degree perineal laceration during delivery; O70.0 First degree perineal laceration during delivery

== ENCOUNTER → 2021-01-02 | Outpatient (REF) | payer BC, MEDICAID ==
[~2021-01-02] MED LIST: PRENTAB9 PO
== END ==
LOC: M SFHCWAGY 18:27
PROVIDERS: ATTEND Advanced Practice Midwife
DX: Z12.4 Encounter for screening for malignant neoplasm of cervix (principal)